=== PATIENT | female | born 1980 | race Caucasian/White ===

== ENCOUNTER → 2017-09-01 16:32 | Outpatient (CLI) | payer MEDICAID, SELFPAY ==
--- NOTE | 2017-09-01 16:35 | MM_ITS ---
MM Dig screening mamm BI w/CAD CAD Screening COMPARISON: Digital mammograms 05/29/2015 and 08/27/2016 INDICATION: There is a history of breast cancer patient maternal aunt diagnosed before menopause. There has been previous biopsy right breast. TECHNIQUE: Standard CC and MLO images were obtained. R2 CAD reviewed. FINDINGS: Prominent diffuse fibroglandular densities are seen in the central portions of both breasts and the findings are bilateral and symmetrical. There is a mole marker left breast. There are tiny stable benign-appearing nodular densities in each breast as noted previously. There is no suspicious lesion and there are no suspicious microcalcifications. There are stable normal-sized nodes in both axilla IMPRESSION: Stable exam with no suspicious lesion seen BI-RADS Category: 2 Benign Finding(s) RECOMMENDED FOLLOW-UP: 1YR - 1 YEAR FOLLOW-UP (A letter has been sent to the patient regarding results of the study.)
== END ==
PROVIDERS: Family Provider Nurse Practitioner Family; PCP Internal Medicine Adolescent Medicine; Visit Provider Nurse Practitioner Obstetrics & Gynecology
DX: Z12.31 Encounter for screening mammogram for malignant neoplasm of breast (principal)
CPT/HCPCS: 77067

== ENCOUNTER → 2017-10-26 16:18 | Outpatient (CLI) | payer MEDICAID, SELFPAY ==
[2017-10-26 16:41] LABS: Basophils # 0.1 K/mm3 (0-0.2); Basophils % 0.6 % (0.1-2.0); Eosinophils # 0.3 K/mm3 (0.0-0.4); Eosinophils % 3.6 % (0.1-12.0); Hematocrit 40.5 % (37.0-47.0); Hemoglobin 13.2 g/dL (12.2-16.2); Lymphocytes # 2.8 K/mm3 (0.7-4.5); Lymphocytes % 32.4 K/mm3 (10-50); Mean Corpuscular HGB Conc 32.7 g/dL (31.8-35.4); Mean Corpuscular Hemoglobin 29.9 pg (27.0-31.2); Mean Corpuscular Volume 91.4 fl (81-99); Mean Platelet Volume 7.4 fl (7.4-10.4); Monocytes # 0.5 K/mm3 (0.1-1.0); Monocytes % 5.4 % (1.7-9.3); Platelet Count 402 K/mm3 (142-424); Red Blood Count 4.43 M/mm3 (4.20-5.40); Red Cell Distribution Width 12.1 % (11.5-17.5); White Blood Count 8.7 K/mm3 (4.8-10.8)
[2017-10-26 17:17] LABS: Alanine Aminotransferase 27 U/L (12-78); Albumin/Globulin Ratio 1.1 (1.1-1.8); Alkaline Phosphatase 71 U/L (46-116); Anion Gap 13.3 mEq/L (5-15); Aspartate Amino Transferase 14 U/L (15-37); Bilirubin,Total 0.2 mg/dL (0.2-1.0); Blood Urea Nitrogen 15 mg/dL (7-18); Calcium 9.4 mg/dL (8.5-10.1); Carbon Dioxide 28 mmol/L (21.0-32.0); Chloride 103 mmol/L (98-107); Creatinine,Serum 0.76 mg/dL (0.55-1.02); Estimated Glomerular Filt Rate 86 ml/min (>60); Free Thyroxine Index 3.4 ug/dL (5.93-13.13); GFR (African American) 104 ML/MIN (>60); Globulin 3.7 gm/dl (1.3-3.2); Glucose 89 mg/dL (74-106); Potassium 4.3 mmoL/L (3.5-5.1); Sodium 140 mmol/L (136-145); T4 (Thyroxine) 10.7 ug/dl (4.7-13.3); Thyroid Stimulating Hormone 1.35 uIU/ml (0.358-3.740); Total Protein,Serum 7.7 gm/dL (6.4-8.2); Triiodothryronine (T3) Uptake 32 % (31-39)
[2017-10-29 12:51] LABS: Estradiol 34.5 pg/mL (.); FSH 4.5 mIU/mL (.); LH 3.7 mIU/mL (.)
[2017-10-30 20:11] LABS: Testosterone,Free 3.2 pg/mL (0.0-4.2)
== END ==
PROVIDERS: Visit Provider Nurse Practitioner Obstetrics & Gynecology
DX: R53.82 Chronic fatigue, unspecified (principal); N95.1 Menopausal and female climacteric states
CPT/HCPCS: 36415; 80053; 82670; 83001; 83002; 84402; 84436; 84443; 84479; 85025

== ENCOUNTER → 2017-12-08 13:25 | Outpatient (CLI) | payer MEDICAID, SELFPAY ==
[2017-12-08 14:19] LABS: Basophils # 0.1 K/mm3 (0-0.2); Basophils % 0.8 % (0.1-2.0); Eosinophils # 0.2 K/mm3 (0.0-0.4); Eosinophils % 2.5 % (0.1-12.0); Hematocrit 42.4 % (37.0-47.0); Hemoglobin 13.4 g/dL (12.2-16.2); Lymphocytes # 2.8 K/mm3 (0.7-4.5); Lymphocytes % 33.3 K/mm3 (10-50); Mean Corpuscular HGB Conc 31.6 g/dL (31.8-35.4); Mean Corpuscular Hemoglobin 29.1 pg (27.0-31.2); Mean Corpuscular Volume 91.9 fl (81-99); Mean Platelet Volume 7.3 fl (7.4-10.4); Monocytes # 0.3 K/mm3 (0.1-1.0); Monocytes % 3.9 % (1.7-9.3); Neutrophils # 4.9 K/mm3 (1.8-7.8); Neutrophils % 59.6 % (37.0-80.0); Platelet Count 432 K/mm3 (142-424); Red Blood Count 4.61 M/mm3 (4.20-5.40); White Blood Count 8.3 K/mm3 (4.8-10.8)
[2017-12-08 15:02] LABS: Alanine Aminotransferase 24 U/L (12-78); Albumin Level 3.7 gm/dL (3.4-5.0); Albumin/Globulin Ratio 0.9 (1.1-1.8); Alkaline Phosphatase 64 U/L (46-116); Anion Gap 11.1 mEq/L (5-15); Aspartate Amino Transferase 7 U/L (15-37); Bilirubin,Total 0.2 mg/dL (0.2-1.0); Blood Urea Nitrogen 11 mg/dL (7-18); Calcium 9.6 mg/dL (8.5-10.1); Carbon Dioxide 29 mmol/L (21.0-32.0); Chloride 103 mmol/L (98-107); Creatinine,Serum 0.85 mg/dL (0.55-1.02); Estimated Glomerular Filt Rate 75 ml/min (>60); Free Thyroxine Index 4.4 ug/dL (5.93-13.13); GFR (African American) 91 ML/MIN (>60); Globulin 3.9 gm/dl (1.3-3.2); Glucose 102 mg/dL (74-106); Potassium 4.1 mmoL/L (3.5-5.1); Sodium 139 mmol/L (136-145); T4 (Thyroxine) 15.2 ug/dl (4.7-13.3); Thyroid Stimulating Hormone 0.97 uIU/ml (0.358-3.740); Total Protein,Serum 7.6 gm/dL (6.4-8.2); Triiodothryronine (T3) Uptake 29 % (31-39)
[2017-12-10 09:16] LABS: Testosterone,Total 48 ng/dL (8-48)
[2017-12-10 10:27] LABS: LH 8.4 mIU/mL (.)
== END ==
PROVIDERS: Visit Provider Nurse Practitioner Obstetrics & Gynecology
DX: E03.9 Hypothyroidism, unspecified (principal); N92.6 Irregular menstruation, unspecified
CPT/HCPCS: 36415; 80053; 82670; 83001; 83002; 84403; 84436; 84443; 84479; 85025

== ENCOUNTER → 2018-01-20 12:20 | Outpatient (CLI) | payer MEDICAID, SELFPAY ==
--- NOTE | 2018-01-20 12:22 | US_ITS ---
US transvaginal Ordering Physician: Josh Lane MD Patient Age: 37 years: Female HISTORY: ITS.REASON: US T/V- Abnormal Bleeding abnormal bleeding. Heavy cycles TECHNIQUE: Transvaginal pelvic ultrasound COMPARISON :Previous CT abdomen pelvis 2007 FINDINGS Uterus appears normal in size. 8.6 cm length . endometrial stripe does not appear to be thickened. 3.6 mm AP Uterus contains multiple fibroids. At least 3 fibroids are specifically identified: Fibroid A: measures 1.5 x 1.1cm anterior myometrium body of uterus Fibroid B: posterior body of uterus measures 2 cm x 1.8X 1.4 cm. It resides just posterior to the endometrial stripe and may be Submucosal Fibroid C:. 1.2 x 1 cm likely central, likely submucosal as well just anterior to the endometrium and to the left. - Ovaries appear normal in size with the left slightly larger than right. Good flow to both ovaries No fluid in cul-de-sac Left ovary : measures maximum of 2.8 cm x 1.6 cm x 1.9 cm on the images. Small 8 mm cyst centrally at left ovary . Right ovary : measures 2 cm x 1.1 cm x 1.2 cm lIMPRESSION: ----- 1. Fibroid uterus. 3 fibroids identified in the uterus. The largest measuring up to nearly 2 cm just posterior to t the endometrial stripe at body of uterus & appears likely submucosal. The smaller third fibroid measuring 1.2 cm is likely submucosal at the anterior left aspect of the endometria 2. Ovaries appear normal Bilaterally. Small 8 mm left ovarian cyst 3. No fluid in cul-de-sac
[2018-01-20 17:18] LABS: Free Thyroxine Index 3.3 ug/dL (5.93-13.13); T4 (Thyroxine) 12.6 ug/dl (4.7-13.3); Thyroid Stimulating Hormone 1.56 uIU/ml (0.358-3.740); Triiodothryronine (T3) Uptake 26 % (31-39)
== END ==
PROVIDERS: Family Provider Nurse Practitioner Family; PCP Internal Medicine Adolescent Medicine; Visit Provider Nurse Practitioner Obstetrics & Gynecology
DX: N92.6 Irregular menstruation, unspecified (principal); R53.82 Chronic fatigue, unspecified
CPT/HCPCS: 36415; 76830; 84436; 84443; 84479

== ENCOUNTER → 2018-07-27 16:28 | Outpatient (CLI) | payer BC, SELFPAY ==
[2018-07-27 18:17] LABS: Free Thyroxine Index 3.1 ug/dL (5.93-13.13); T4 (Thyroxine) 9.4 ug/dl (4.7-13.3); Thyroid Stimulating Hormone 1.24 uIU/ml (0.358-3.740); Triiodothryronine (T3) Uptake 33 % (31-39)
[2018-07-29 06:17] LABS: Triiodothyronine (T3) Free 3.1 pg/mL (2.0-4.4)
== END ==
PROVIDERS: Visit Provider Nurse Practitioner Obstetrics & Gynecology
DX: E03.9 Hypothyroidism, unspecified (principal); R53.82 Chronic fatigue, unspecified
CPT/HCPCS: 36415; 84436; 84443; 84479; 84481

== ENCOUNTER → 2018-10-07 12:11 | Outpatient (CLI) | payer BC, SELFPAY ==
[2018-10-07 13:41] LABS: Free Thyroxine Index 3.9 ug/dL (5.93-13.13); T4 (Thyroxine) 13.5 ug/dl (4.7-13.3); Thyroid Stimulating Hormone 1.04 uIU/ml (0.358-3.740); Triiodothryronine (T3) Uptake 29 % (31-39)
[2018-10-08 18:10] LABS: Estradiol 72.9 pg/mL (.); FSH 7.9 mIU/mL (.); LH 7.5 mIU/mL (.)
== END ==
PROVIDERS: Visit Provider Nurse Practitioner Obstetrics & Gynecology
DX: N95.1 Menopausal and female climacteric states (principal)
CPT/HCPCS: 36415; 82670; 83001; 83002; 84436; 84443; 84479

== ENCOUNTER → 2019-03-29 10:21 | Outpatient (CLI) | payer BC, SELFPAY ==
[2019-03-29 10:29] LABS: Adenovirus,PCR Not Detected (NotDetected); Bordetella Pertussis Not Detected (NotDetected); Chlamydophila Pneumoniae, PCR Not Detected (NotDetected); Coronavirus 229E Not Detected (NotDetected); Coronavirus NL63 Not Detected (NotDetected); Coronavirus OC43 Not Detected (NotDetected); Coronovirus HKU1,PCR Not Detected (NotDetected); Human Metapneumovirus Not Detected (NotDetected); Influenza A, PCR Not Detected (NotDetected); Influenza AH1, 2009 Not Detected (NotDetected); Influenza AH1, PCR Not Detected (NotDetected); Influenza AH3,PCR Not Detected (NotDetected); Influenza B, PCR Not Detected (NotDetected); Mycoplasma Pneumoniae, PCR Not Detected (NotDetected); Parainfluenza 1, PCR Not Detected (NotDetected); Parainfluenza 2, PCR Not Detected (NotDetected); Parainfluenza 3, PCR Not Detected (NotDetected); Parainfluenza 4, PCR Not Detected (NotDetected); Respiratory Syncytial Virus Not Detected (NotDetected); Rhinovirus/Enterovirus Not Detected (NotDetected)
[2019-03-29 11:23] LABS: Basophils # 0.1 K/mm3 (0-0.2); Eosinophils # 0.2 K/mm3 (0.0-0.4); Eosinophils % 2.1 % (0.1-12.0); Hematocrit 43.9 % (37.0-47.0); Hemoglobin 13.3 g/dL (12.2-16.2); Lymphocytes % 23.8 % (10-50); Mean Corpuscular HGB Conc 30.4 g/dL (31.8-35.4); Mean Corpuscular Hemoglobin 28.8 pg (27.0-31.2); Mean Corpuscular Volume 94.9 fl (81-99); Mean Platelet Volume 7.5 fl (7.4-10.4); Monocytes # 0.5 K/mm3 (0.1-1.0); Monocytes % 6.1 % (1.7-9.3); Neutrophils # 5.7 K/mm3 (1.8-7.8); Platelet Count 442 K/mm3 (142-424); Red Blood Count 4.63 M/mm3 (4.20-5.40); Red Cell Distribution Width 12.8 % (11.5-17.5); White Blood Count 8.5 K/mm3 (4.8-10.8)
[2019-03-29 13:06] LABS: Alanine Aminotransferase 42 U/L (12-78); Albumin Level 3.9 gm/dL (3.4-5.0); Alkaline Phosphatase 85 U/L (46-116); Anion Gap 15.8 mEq/L (5-15); Aspartate Amino Transferase 26 U/L (15-37); Bilirubin,Total 0.2 mg/dL (0.2-1.0); Blood Urea Nitrogen 9 mg/dL (7-18); Calcium 9.7 mg/dL (8.5-10.1); Carbon Dioxide 26 mmol/L (21.0-32.0); Chloride 100 mmol/L (98-107); Creatinine,Serum 0.68 mg/dL (0.55-1.02); Estimated Glomerular Filt Rate 97 ml/min (>60); GFR (African American) 117 ML/MIN (>60); Globulin 3.9 gm/dl (1.3-3.2); Glucose 87 mg/dL (74-106); Potassium 4.8 mmoL/L (3.5-5.1); Sodium 137 mmol/L (136-145); Total Protein,Serum 7.8 gm/dL (6.4-8.2)
[2019-03-29 15:25] LABS: Monoscreen (Rapid) Negative (Negative)
[2019-04-01 13:44] LABS: EBV Ab VCA, IgM <36.0 U/mL (0.0-35.9)
== END ==
PROVIDERS: Visit Provider Internal Medicine Adolescent Medicine
DX: J02.9 Acute pharyngitis, unspecified (principal); R50.9 Fever, unspecified
CPT/HCPCS: 36415; 80053; 85025; 86318; 86665; 87070; 87077; 87186; 87486; 87581; 87633; 87798

== ENCOUNTER → 2019-05-24 15:41 | Outpatient (CLI) | payer BC, SELFPAY ==
--- NOTE | 2019-05-24 15:44 | MM_ITS ---
PROCEDURE: MM DIG SCREENING MAMM BI W/CAD CLINICAL INDICATION: Routine Screening Mammogram There is a history of breast cancer in the patient's maternal aunt diagnosed before menopause. COMPARISON: DMDB DIG MAMM-DX DEBORAH from 05/29/2015 [facility] DIG MAMM-SCREEN DEBORAH W/CAD from 08/27/2016 [facility] MM Dig screening mamm BI w/CAD from 09/01/2017 TECHNIQUE: Standard CC and MLO images were obtained. R2 CAD reviewed. FINDINGS: Diffuse somewhat heterogenic fibroglandular densities are seen throughout both breasts. There is a stable small benign-appearing nodular density upper-outer quadrant left breast. There is a benign-appearing calcification left breast. There are small nodes in both axilla. There is no suspicious lesion and no suspicious microcalcifications. IMPRESSION: Moderate breast heterogenic density with no suspicious lesions seen BI-RAD Category: 2 Benign Finding(s) FOLLOW-UP: 1YR 1 Year Follow-up (A letter has been sent to the patient regarding results of the study.) Dictated by: Dr. Albert Wilks MD 05/25/2019 16:[address] Albert Wilks MD in [place] 05/25/2019 16:15
== END ==
PROVIDERS: PCP Internal Medicine Adolescent Medicine; Visit Provider Nurse Practitioner Obstetrics & Gynecology
DX: Z12.31 Encounter for screening mammogram for malignant neoplasm of breast (principal)
CPT/HCPCS: 77067

== ENCOUNTER → 2020-06-05 10:30 | Outpatient (CLI) | payer BC, SELFPAY ==
--- NOTE | 2020-06-05 10:31 | MM_ITS ---
PROCEDURE: MM DIG SCREENING MAMM BI W/CAD Referring Doctor: Josh Lane Patient Age:39Y CLINICAL INDICATION: screening xmg previous surgical excisional biopsy right breast benign. No hormones no new complaints. Family history: Maternal aunt with breast cancer in her 40s premenopausal COMPARISON: MG DMDB DIG MAMM-DX DEBORAH from 10/22/2014 MG DMDB DIG MAMM-DX DEBORAH from 05/29/2015 MG [facility]MSB DIG MAMM-SCREEN DEBORAH W/CAD from 08/27/2016 MG [facility] MM Dig screening mamm BI w/CAD from 09/01/2017 MG MM DIG SCREENING MAMM BI W/CAD from 05/24/2019 TECHNIQUE: Standard CC and MLO images were obtained. R2 CAD reviewed. Bilateral digital breast tomosynthesis included. Additional axillary CC views both breast FINDINGS: Moderate dense heterogeneous breast.. Mammography slightly limited in breast of this character period there has been slight progressive fatty replacement Since 2015 . no suspicious calcifications in either breast. Stable generous axillary lymph nodes. Left breast. No significant new findings left breast follow-up in 1 year latter adequate on left Areas of mild asymmetry appears similar to multiple previous studies Dating back to 2017, Right breast no new areas of significant concern reviewing all images Area of density right inferior breast at the retroareolar region seen on MLO view dissipates on the subsequent tomosynthesis views and thus I favor is merely overlapping tissue the. However given its focal asymmetric appearance on MLO view I would suggest a follow-up right mammogram in 6 months to confirm stability IMPRESSION: . RIGHT BREAST: Suggest follow-up right mammogram 6 months Areas of asymmetry density at the inferior right breast on MLO and deep breast on CC view appear to dissipate on tomosynthesis view of-supporting that this is merely overlapping tissue.... However would suggest a follow-up right mammogram in 6 months to confirm stability given appearance on the initial MLO view. LEFT BREAST- No new areas of concern follow-up 1 year on left BI-RAD Category: 3 Probably Benign Finding Short Term Follow-up FOLLOW-UP: 6M 6 Month Follow-up right breast (A letter has been sent to the patient regarding results of the study.) The Dictated by: Fernando Zazueta MD 06/10/2020 09:58 Fernando Zazueta MD in [place] 06/10/2020 09:58
== END ==
PROVIDERS: PCP Internal Medicine Adolescent Medicine; Visit Provider Nurse Practitioner Obstetrics & Gynecology
DX: Z12.31 Encounter for screening mammogram for malignant neoplasm of breast (principal)
CPT/HCPCS: 77063; 77067

== ENCOUNTER → 2020-07-06 07:56 | Outpatient (CLI) | payer BC, SELFPAY ==
[2020-07-06 08:16] LABS: Basophils # 0.1 K/mm3 (0-0.2); Basophils % 1.1 % (0.1-2.0); Eosinophils # 0.3 K/mm3 (0.0-0.4); Eosinophils % 3.9 % (0.1-12.0); Hematocrit 44.9 % (37.0-47.0); Hemoglobin 14.5 g/dL (12.2-16.2); Lymphocytes # 2.8 K/mm3 (0.7-4.5); Lymphocytes % 37.5 % (10-50); Mean Corpuscular HGB Conc 32.4 g/dL (31.8-35.4); Mean Corpuscular Hemoglobin 30.3 pg (27.0-31.2); Mean Corpuscular Volume 93.6 fl (81-99); Mean Platelet Volume 7.6 fl (7.4-10.4); Monocytes # 0.4 K/mm3 (0.1-1.0); Monocytes % 4.7 % (1.7-9.3); Neutrophils % 52.7 % (37.0-80.0); Platelet Count 419 K/mm3 (142-424); Red Cell Distribution Width 12.6 % (11.5-17.5); White Blood Count 7.6 K/mm3 (4.8-10.8)
[2020-07-06 08:44] LABS: Alanine Aminotransferase 29 U/L (12-78); Albumin Level 4.6 g/dl (3.5-5.0); Albumin/Globulin Ratio 1.4 (1.1-1.8); Alkaline Phosphatase 79 U/L (38-126); Anion Gap 12.7 mEq/L (5-15); Aspartate Amino Transferase 24 U/L (14-36); Bilirubin,Total 0.6 mg/dl (0.2-1.3); Blood Urea Nitrogen 14 mg/dl (7-17); Calcium 10.3 mg/dl (8.4-10.2); Carbon Dioxide 29 mmol/L (22.0-30.0); Chloride 103 mmol/L (98-107); Chol/HDL Ratio 3.5 (1-3.5); Cholesterol 227 mg/dl (140-200); Estimated Glomerular Filt Rate 80 ml/min (>60); GFR (African American) 97 ML/MIN (>60); Globulin 3.4 g/dL (1.3-3.2); Glucose 111 mg/dl (74-100); HDL Cholesterol 65 mg/dl (40-60); Potassium 4.7 mmoL/L (3.5-5.1); Sodium 140 mmol/L (136-145); Triglycerides 117 mg/dl (30-150); VLDL Cholesterol 23 mg/dL (0-40)
[2020-07-06 08:56] LABS: Direct LDL Cholesterol 122.76 mg/dL (100-129)
[2020-07-06 09:01] LABS: Free Thyroxine Index 2.6 ug/dL (5.93-13.13); T4 (Thyroxine) 9.1 ug/dl (5.53-11.0); Triiodothryronine (T3) Uptake 29 % (23.5-40.5)
[2020-07-06 09:15] LABS: Thyroid Stimulating Hormone 1.12 uIU/mL (0.465-4.68)
== END ==
PROVIDERS: Visit Provider Nurse Practitioner Obstetrics & Gynecology
DX: Z01.419 Encounter for gynecological examination (general) (routine) without abnormal findings (principal); E06.3 Autoimmune thyroiditis; R53.82 Chronic fatigue, unspecified
CPT/HCPCS: 36415; 80053; 80061; 84436; 84443; 84479; 85025

== ENCOUNTER → 2020-10-05 10:46 | Outpatient (CLI) | payer BC, SELFPAY ==
--- NOTE | 2020-10-05 | XR_ITS ---
PROCEDURE: XR LUMBAR SPINE MIN 4V CLINICAL INDICATION: right sided back pain COMPARISON: No exams were available for comparison FINDINGS: There is accentuated lordotic curvature lower lumbar spine. The lumbosacral angle is increased suggesting possible instability of the lower back. All lumbar vertebrae appear intact and disc spaces are well maintained throughout. There is no pars defect. There is a spina bifida occulta of S1. The SI joints are normal. Tubal ligation clips are seen. IMPRESSION: No accentuated lumbar lordosis with increased lumbosacral angle findings which could predispose to low back pain and or instability. Dictated by: Dr. Albert Wilks MD 10/05/2020 16:13 Dr. Albert Wilks MD in [place] 10/05/2020 16:13
== END ==
PROVIDERS: PCP Internal Medicine Adolescent Medicine; Visit Provider Internal Medicine Adolescent Medicine
DX: M54.41 Lumbago with sciatica, right side (principal)
CPT/HCPCS: 72110

== ENCOUNTER → 2020-11-21 13:15 | Outpatient (CLI) | payer BC, SELFPAY ==
--- NOTE | 2020-11-21 13:15 | MM_ITS ---
PROCEDURE: MM DIG MAMM BI DX W/CAD Digital Breast Tomosynthesis Included CLINICAL INDICATION: 6 month follow up on right breast, screening, lt COMPARISON: MG [facility] MM Dig screening mamm BI w/CAD from 09/01/2017 MG MM DIG SCREENING MAMM BI W/CAD from 05/24/2019 MG MM DIG SCREENING MAMM BI W/CAD from 06/05/2020 TECHNIQUE: Standard CC and MLO images and 3D Tomosynthesis was obtained. R2 CAD reviewed. FINDINGS: Average to dense fibroglandular tissue. No malignant appearing mass or malignant-appearing microcalcification evident. Benign-appearing nodular density noted in the upper outer aspect of the left breast unchanged. Previously described asymmetry in the central aspect of the right breast appears to compress out as fibroglandular tissue. Asymmetry in the inferior periareolar region on the right does not appear significantly changed. Tomographic images suggest this may be due to some dilated ducts. IMPRESSION: Benign findings. Recommend resume bilateral screening mammogram June 2021 BI-RAD Category: 2 Benign Finding FOLLOW-UP: 6M 6 Month Follow-up (A letter has been sent to the patient regarding results of the study.) Dictated by: Renny Noland MD 11/22/2020 10:11 Renny Noland MD in [place] 11/22/2020 10:11
== END ==
PROVIDERS: PCP Internal Medicine Adolescent Medicine; Visit Provider Nurse Practitioner Obstetrics & Gynecology
DX: R92.8 Other abnormal and inconclusive findings on diagnostic imaging of breast (principal)
CPT/HCPCS: 77062; 77066; G0279

== ENCOUNTER → 2021-04-02 15:35 | Outpatient (CLI) | payer BC, SELFPAY ==
[2021-04-02 16:50] LABS: Free Thyroxine Index 1.9 ug/dL (5.93-13.13); T4 (Thyroxine) 7.1 ug/dl (5.53-11.0); Triiodothryronine (T3) Uptake 27 % (23.5-40.5)
[2021-04-02 17:04] LABS: Thyroid Stimulating Hormone 1.45 uIU/mL (0.465-4.68)
[2021-04-04 08:51] LABS: Triiodothyronine (T3) Free 3.1 pg/mL (2.0-4.4)
== END ==
PROVIDERS: Visit Provider Nurse Practitioner Obstetrics & Gynecology
DX: E03.9 Hypothyroidism, unspecified (principal); R53.82 Chronic fatigue, unspecified; R53.83 Other fatigue
CPT/HCPCS: 84436; 84443; 84479; 84481

== ENCOUNTER → 2021-04-07 07:16 | Outpatient (CLI) | payer BC, SELFPAY ==
[2021-04-07 07:36] LABS: Basophils # 0.2 K/mm3 (0-0.2); Basophils % 1.9 % (0.1-2.0); Eosinophils # 0.3 K/mm3 (0.0-0.4); Eosinophils % 2.9 % (0.1-12.0); Hematocrit 44.3 % (37.0-47.0); Hemoglobin 14.5 g/dL (12.2-16.2); Lymphocytes # 2.6 K/mm3 (0.7-4.5); Mean Corpuscular HGB Conc 32.7 g/dL (31.8-35.4); Mean Corpuscular Volume 94.7 fl (81-99); Monocytes # 0.4 K/mm3 (0.1-1.0); Monocytes % 4.1 % (1.7-9.3); Neutrophils # 5.2 K/mm3 (1.8-7.8); Platelet Count 415 K/mm3 (142-424); Red Blood Count 4.68 M/mm3 (4.20-5.40); Red Cell Distribution Width 12.4 % (11.5-17.5); White Blood Count 8.6 K/mm3 (4.8-10.8)
[2021-04-07 08:36] LABS: 25-OH Vitamin D, Total 22.9 ng/mL (30-100)
[2021-04-07 09:24] LABS: Alanine Aminotransferase 20 U/L (12-78); Albumin Level 4.2 g/dl (3.5-5.0); Albumin/Globulin Ratio 1.3 (1.1-1.8); Alkaline Phosphatase 69 U/L (38-126); Anion Gap 11.6 mEq/L (5-15); Aspartate Amino Transferase 19 U/L (14-36); Bilirubin,Total 0.3 mg/dl (0.2-1.3); Blood Urea Nitrogen 13 mg/dl (7-17); Calcium 9.4 mg/dl (8.4-10.2); Carbon Dioxide 26 mmol/L (22.0-30.0); Chloride 109 mmol/L (98-107); Chol/HDL Ratio 4.4 (1-3.5); Cholesterol 210 mg/dl (140-200); Estimated Glomerular Filt Rate 111 ml/min (>60); GFR (African American) 134 ML/MIN (>60); Globulin 3.2 g/dL (1.3-3.2); Glucose 112 mg/dl (74-100); HDL Cholesterol 48 mg/dl (40-60); Potassium 4.6 mmoL/L (3.5-5.1); Sodium 142 mmol/L (136-145); Total Protein,Serum 7.4 g/dl (6.3-8.2); Triglycerides 87 mg/dl (30-150); VLDL Cholesterol 17 mg/dL (0-40)
[2021-04-07 09:36] LABS: Direct LDL Cholesterol 117.53 mg/dL (100-129)
[2021-04-07 11:16] LABS: Vitamin B12 265 pg/mL (239-931)
== END ==
PROVIDERS: Internal Medicine Adolescent Medicine; Visit Provider Nurse Practitioner Family
DX: Z00.00 Encounter for general adult medical examination without abnormal findings (principal); R59.1 Generalized enlarged lymph nodes; R53.83 Other fatigue; R73.9 Hyperglycemia, unspecified; E55.9 Vitamin D deficiency, unspecified
CPT/HCPCS: 36415; 80053; 80061; 82306; 82607; 83036; 85025

== ENCOUNTER → 2021-10-18 08:50 | Outpatient (CLI) | payer BC, SELFPAY ==
[2021-10-18 11:02] LABS: Alanine Aminotransferase 32 U/L (12-78); Albumin Level 4.4 g/dl (3.5-5.0); Albumin/Globulin Ratio 1.5 (1.1-1.8); Alkaline Phosphatase 69 U/L (38-126); Anion Gap 10.7 mEq/L (5-15); Aspartate Amino Transferase 25 U/L (14-36); Bilirubin,Total 0.6 mg/dl (0.2-1.3); Blood Urea Nitrogen 12 mg/dl (7-17); Calcium 9.4 mg/dl (8.4-10.2); Carbon Dioxide 26 mmol/L (22.0-30.0); Chloride 108 mmol/L (98-107); Chol/HDL Ratio 4.4 (1-3.5); Cholesterol 210 mg/dl (140-200); Estimated Glomerular Filt Rate 110 ml/min (>60); GFR (African American) 133 ML/MIN (>60); Glucose 90 mg/dl (74-100); HDL Cholesterol 48 mg/dl (40-60); Potassium 4.7 mmoL/L (3.5-5.1); Sodium 140 mmol/L (136-145); Total Protein,Serum 7.4 g/dl (6.3-8.2); Triglycerides 119 mg/dl (30-150); VLDL Cholesterol 24 mg/dL (0-40)
[2021-10-18 11:13] LABS: Direct LDL Cholesterol 106.72 mg/dL (100-129)
[2021-10-18 11:51] LABS: Vitamin B12 754 pg/mL (239-931)
[2021-10-18 12:05] LABS: 25-OH Vitamin D, Total 22.3 ng/mL (30-100)
[2021-10-18 12:40] LABS: Hemoglobin A1C 5.6 % (4.0-6.0)
== END ==
PROVIDERS: Nurse Practitioner Family; PCP Internal Medicine Adolescent Medicine; Visit Provider Internal Medicine Adolescent Medicine
DX: R73.9 Hyperglycemia, unspecified (principal); E78.5 Hyperlipidemia, unspecified; E53.8 Deficiency of other specified B group vitamins; E55.9 Vitamin D deficiency, unspecified
CPT/HCPCS: 36415; 80053; 80061; 82306; 82607; 83036

== ENCOUNTER → 2021-12-08 15:37 | Outpatient (CLI) | payer BC, SELFPAY ==
--- NOTE | 2021-12-08 15:38 | MM_ITS ---
PROCEDURE INFORMATION: Exam: MG Bilateral Screening 3D Mammography Exam date and time: 12/08/2021 3:49 PM Age: 41 years old Clinical indication: Screening examination TECHNIQUE: Imaging protocol: Bilateral Screening tomosynthesis and 2D mammography including computer-aided detection (CAD) when performed. COMPARISON: 1. MG MM DIG MAMM BI DX W/CAD 11/21/2020 1:36 PM 2. MG MM DIG SCREENING MAMM BI W/CAD 06/05/2020 10:39 AM FINDINGS: MAMMOGRAPHY: Breast composition: The breasts are heterogeneously dense, which may obscure small masses. Mass: None. Architectural distortion: None. Calcifications: No suspicious calcifications. Asymmetric density: None. Skin thickening: None. Axillary adenopathy: None. IMPRESSION: No mammographic evidence of malignancy. Annual screening is recommended unless otherwise clinically indicated. ASSESSMENT: BI-RADS Category 1: Negative
== END ==
PROVIDERS: PCP Internal Medicine Adolescent Medicine; Visit Provider Nurse Practitioner Obstetrics & Gynecology
DX: Z12.31 Encounter for screening mammogram for malignant neoplasm of breast (principal)
CPT/HCPCS: 77063; 77067

== ENCOUNTER → 2022-12-07 08:08 | Outpatient (CLI) | payer BC, SELFPAY ==
[2022-12-07 08:41] LABS: Basophils # 0.1 K/mm3 (0-0.2); Basophils % 0.9 % (0.1-2.0); Eosinophils # 0.2 K/mm3 (0.0-0.4); Eosinophils % 2.9 % (0.1-12.0); Hematocrit 45.3 % (37.0-47.0); Hemoglobin 14.1 g/dL (12.2-16.2); Lymphocytes # 2.5 K/mm3 (0.7-4.5); Lymphocytes % 37.1 % (10-50); Mean Corpuscular HGB Conc 31.1 g/dL (31.8-35.4); Mean Corpuscular Hemoglobin 29.6 pg (27.0-31.2); Mean Corpuscular Volume 95.2 fl (81-99); Mean Platelet Volume 7.8 fl (7.4-10.4); Monocytes # 0.4 K/mm3 (0.1-1.0); Monocytes % 5.3 % (1.7-9.3); Neutrophils # 3.6 K/mm3 (1.8-7.8); Neutrophils % 53.7 % (37.0-80.0); Platelet Count 390 K/mm3 (142-424); Red Blood Count 4.76 M/mm3 (4.20-5.40); Red Cell Distribution Width 12.9 % (11.5-17.5); White Blood Count 6.7 K/mm3 (4.8-10.8)
[2022-12-07 09:12] LABS: Hemoglobin A1C 5.6 % (4.0-6.0)
[2022-12-07 10:04] LABS: Cholesterol 206 mg/dl (140-200)
[2022-12-07 10:22] LABS: 25-OH Vitamin D, Total 32.1 ng/mL (30-100); Free Thyroxine Index 2.5 ug/dL (5.93-13.13); Triiodothryronine (T3) Uptake 31 % (23.5-40.5)
[2022-12-07 10:36] LABS: Thyroid Stimulating Hormone 1.89 uIU/mL (0.465-4.68)
[2022-12-07 10:55] LABS: Vitamin B12 557 pg/mL (239-931)
== END ==
PROVIDERS: PCP Internal Medicine Adolescent Medicine; Visit Provider Nurse Practitioner Obstetrics & Gynecology
DX: Z01.419 Encounter for gynecological examination (general) (routine) without abnormal findings (principal)
CPT/HCPCS: 36415; 82306; 82465; 82607; 83036; 84436; 84443; 84479; 85025

== ENCOUNTER → 2022-12-11 10:04 | Outpatient (CLI) | payer BC, SELFPAY ==
--- NOTE | 2022-12-11 10:05 | MM_ITS ---
PROCEDURE INFORMATION: Exam: MG Bilateral Screening 3D Mammography Exam date and time: 12/11/2022 9:53 AM Age: 42 years old Clinical indication: Screening mammogram TECHNIQUE: Imaging protocol: Bilateral Screening tomosynthesis and 2D mammography including computer-aided detection (CAD) when performed. COMPARISON: 1. MG MM DIG SCREENING MAMM BI W/CAD 12/08/2021 3:49 PM 2. MG MM DIG MAMM BI DX W/CAD 11/21/2020 1:36 PM 3. MG MM DIG SCREENING MAMM BI W/CAD 06/05/2020 10:39 AM 4. MG MM DIG SCREENING MAMM BI W/CAD 05/24/2019 4:38 PM FINDINGS: MAMMOGRAPHY: Breast composition: The breast is heterogeneously dense, which may obscure small masses. Mass: None. Architectural distortion: No new or suspicious architectural distortion. Calcifications: No new or suspicious calcifications are present Asymmetric density: No new or suspicious asymmetric density is present Skin thickening: None. Axillary adenopathy: None. IMPRESSION: No mammographic evidence of malignancy. Recommend annual screening mammography unless otherwise clinically indicated. ASSESSMENT: BI-RADS category 1: Negative
== END ==
PROVIDERS: PCP Internal Medicine Adolescent Medicine; Visit Provider Nurse Practitioner Obstetrics & Gynecology
DX: Z12.31 Encounter for screening mammogram for malignant neoplasm of breast (principal)
CPT/HCPCS: 77063; 77067

== ENCOUNTER 2023-12-28 13:16 | Outpatient (CLI) | payer BC, SELFPAY ==
--- NOTE | 2023-12-28 13:17 | MM_ITS ---
PROCEDURE INFORMATION: Exam: MG Bilateral Screening 3D Mammography Exam date and time: 12/28/2023 1:11 PM Age: 43 years old Clinical indication: Screening. Her maternal aunt had breast cancer. TECHNIQUE: Imaging protocol: Bilateral Screening tomosynthesis and 2D mammography including computer-aided detection (CAD) when performed. COMPARISON: 1. MG MM DIG SCREENING MAMM BI W/CAD 12/11/2022 9:53 AM 2. MG MM DIG SCREENING MAMM BI W/CAD 12/08/2021 3:49 PM 3. MG MM DIG MAMM BI DX W/CAD 11/21/2020 1:36 PM 4. MG MM DIG SCREENING MAMM BI W/CAD 06/05/2020 10:39 AM FINDINGS: MAMMOGRAPHY: Breast composition: The breasts are heterogeneously dense, which may obscure small masses. Mass: No suspicious mass. Architectural distortion: None. Calcifications: No suspicious calcifications. Asymmetric density: None. Skin thickening: None. Axillary adenopathy: None. IMPRESSION: No mammographic evidence of malignancy. Annual screening is recommended unless otherwise clinically indicated. ASSESSMENT: BI-RADS Category 1: Negative
== END 2023-12-28 23:59 | disposition home or self-care (01) ==
LOC: RAD 13:17
PROVIDERS: PCP Internal Medicine Adolescent Medicine; Visit Provider Nurse Practitioner Obstetrics & Gynecology
DX: Z12.31 Encounter for screening mammogram for malignant neoplasm of breast (principal)
CPT/HCPCS: 77063; 77067

== ENCOUNTER 2024-01-11 08:28 | Outpatient (CLI) | payer BC, SELFPAY ==
--- NOTE | 2024-01-11 08:32 | US_ITS ---
FINAL REPORT CLINICAL HISTORY: ELEVATED LIVER ENZYMES COMPARISON: None FINDINGS: Sonographic images of the right upper quadrant were obtained. The pancreas is partially obscured. There is mild fatty infiltration of the liver. The gallbladder appears normal without evidence of gallstones.There is no evidence of biliary ductal dilatation.The common duct measures 4mm. Limited images of the right kidney are unremarkable. There is a probable small amount of free fluid. IMPRESSION: Fatty liver. Small amount of free fluid. Reviewed, Interpreted and Dictated by Herb Velázquez III, MD Transcribed by Alize Fischer Authenticated and [facility]
== END 2024-01-11 23:59 | disposition home or self-care (01) ==
LOC: RAD 08:28
PROVIDERS: PCP Nurse Practitioner Family; Visit Provider Nurse Practitioner Family
DX: R74.8 Abnormal levels of other serum enzymes (principal)
CPT/HCPCS: 76705

== ENCOUNTER 2024-03-29 11:04 | Outpatient (CLI) | payer BC, SELFPAY ==
--- NOTE | 2024-03-29 11:12 | XR_ITS ---
FINAL REPORT CLINICAL HISTORY: ACUTE BRONCHITIS FINDINGS: 2 views of the chest were obtained . The heart is normal in size. The mediastinum is within normal limits. The lungs are clear. There is no pneumothorax. Osseous structures are unremarkable. IMPRESSION: No acute cardiopulmonary process. Reviewed, Interpreted and Dictated by Osmin Ellsworth MD Transcribed by Alba Allen Authenticated and [facility]
== END 2024-03-29 23:59 | disposition home or self-care (01) ==
LOC: RAD 11:05
PROVIDERS: PCP Internal Medicine Adolescent Medicine; Visit Provider Physician Assistant
DX: J20.9 Acute bronchitis, unspecified (principal)
CPT/HCPCS: 71046

== ENCOUNTER 2024-04-20 11:05 | Outpatient (CLI) | payer BC, SELFPAY ==
--- NOTE | 2024-04-20 11:18 | XR_ITS ---
FINAL REPORT CLINICAL HISTORY: right tib/fib pain COMPARISON: None FINDINGS: RIGHT TIBIA FIBULA: There is no acute fracture or dislocation. The joint spaces are intact. There is no soft tissue abnormality. IMPRESSION: No acute bony abnormality identified. Reviewed, Interpreted and Dictated by Joaquín Hussein MD Transcribed by Aleshia Diaz Authenticated and [facility]
--- NOTE | 2024-04-20 11:18 | XR_ITS ---
FINAL REPORT CLINICAL HISTORY: ACUTE RIGHT KNEE PAIN COMPARISON: None FINDINGS: RIGHT KNEE 3 views of the right knee were obtained. There is no acute fracture or dislocation. Visualized joint spaces are normally aligned. Soft tissues are unremarkable. There are sclerotic foci in the distal femoral metaphysis, that may be developmental or may represent bone infarcts. IMPRESSION: No acute bony abnormality. Reviewed, Interpreted and Dictated by Joaquín Hussein MD Transcribed by Aleshia Diaz Authenticated and [facility]
--- NOTE | 2024-04-20 11:19 | XR_ITS ---
FINAL REPORT CLINICAL HISTORY: RIGHT LEG PAIN COMPARISON: None FINDINGS: RIGHT FEMUR: 5 images of the right femur were obtained. There is no evidence of fracture or dislocation. There is sclerosis noted in the distal femoral metaphysis, that may be developmental or secondary to bone infarcts. The joint spaces are intact. There is no soft tissue abnormality identified. IMPRESSION: No acute bony abnormality. Reviewed, Interpreted and Dictated by Joaquín Hussein MD Transcribed by Aleshia Diaz Authenticated and [facility]
== END 2024-04-20 23:59 | disposition home or self-care (01) ==
LOC: RAD 11:05
PROVIDERS: PCP Nurse Practitioner Family; Visit Provider Nurse Practitioner Family
DX: M25.561 Pain in right knee (principal); M25.461 Effusion, right knee; M79.604 Pain in right leg
CPT/HCPCS: 73552; 73562; 73590

== ENCOUNTER 2024-09-06 16:19 | Observation (INO) | payer BC, SELFPAY ==
--- NOTE | 2024-09-06 16:33 | CT_ITS ---
PROCEDURE INFORMATION: Exam: CT Neck With Contrast Exam date and time: 09/06/2024 6:04 PM Age: 44 years old Clinical indication: Throat pain; Additional info: Pharyngitis - R/O abscess TECHNIQUE: Imaging protocol: Computed tomography of the neck with contrast. Radiation optimization: All CT scans at this facility use at least one of these dose optimization techniques: automated exposure control; mA and/or kV adjustment per patient size (includes targeted exams where dose is matched to clinical indication); or iterative reconstruction. Contrast material: ISOVUE; Contrast volume: 75 ml; Contrast route: IV; COMPARISON: CT SOFT TISSUE NECK W CON 11/04/2024 18:04 FINDINGS: Salivary glands: Normal. Glands are normal in size. Pharynx: Minimal oropharyngeal and hypopharyngeal mucosal thickening. The palatine and lingual tonsils are mildly enlarged. Larynx: Unremarkable. Epiglottis is normal. Thyroid: Normal. No enlarged or calcified nodules. Trachea: Visualized trachea is unremarkable. Lungs: Unremarkable as visualized. Lymph nodes: There are enlarged bilateral cervical lymph nodes that are most likely reactive. Bones/joints: Unremarkable. No acute fracture. Soft tissues: Unremarkable. No significant soft tissue swelling. Other findings: Stigmata of old granulomatous disease. IMPRESSION: 1. Minimal oropharyngeal and hypopharyngeal mucosal thickening. This could correlate with mild pharyngitis. No retropharyngeal abscess. 2. The palatine and lingual tonsils are mildly enlarged. Please exclude tonsillitis. No peritonsillar abscess.
--- NOTE | 2024-09-06 16:35 | PC.NURSE ---
arrived from ER admissions by w/c
[2024-09-06 16:38] VITALS: BP 149/91; PULSE 81; RESP 17; TEMP 36.9; O2SAT 95; BMI 30.3
[2024-09-06 17:09] LABS: White Blood Count 9.8 K/mm3 (4.8-10.8)
[2024-09-06 17:10] LABS: Basophils # 0.1 K/mm3 (0-0.2); Basophils % 1.1 % (0.1-2.0); Eosinophils # 0.2 K/mm3 (0.0-0.4); Eosinophils % 1.5 % (0.1-12.0); Hematocrit 39.4 % (37.0-47.0); Hemoglobin 13.3 g/dL (12.2-16.2); Lymphocytes # 4.4 K/mm3 (0.7-4.5); Lymphocytes % 44.6 % (10-50); Mean Corpuscular HGB Conc 33.8 g/dL (31.8-35.4); Mean Corpuscular Hemoglobin 29.8 pg (27.0-31.2); Mean Corpuscular Volume 88.1 fl (81-99); Mean Platelet Volume 9.1 fl (7.4-10.4); Monocytes # 0.9 K/mm3 (0.1-1.0); Monocytes % 9.1 % (1.7-9.3); Neutrophils # 4.2 K/mm3 (1.8-7.8); Neutrophils % 43.4 % (37.0-80.0); Platelet Count 429 K/mm3 (142-424); Red Blood Count 4.47 M/mm3 (4.20-5.40); Red Cell Distribution Width 12.5 % (11.5-17.5)
[2024-09-06] MEDS: AMPICILLIN SODIUM/SULBACTAM 3 GM in 0.9 % SODIUM CHLORIDE 100 ML IV ×2 (17:12→22:41)
[2024-09-06] MEDS: 0.9 % SODIUM CHLORIDE 1000ML 1,000 ML 100 ML IV ×2 (17:12→22:42)
[2024-09-06] MEDS: DEXAMETHASONE 4MG/ML 1ML VIAL 4 MG IV ×2 (17:14→22:40)
[2024-09-06 17:43] LABS: Chloride 106 mmol/L (98-107)
[2024-09-06 17:44] LABS: Albumin Level 4.6 g/dl (3.5-5.0); Potassium 3.6 mmoL/L (3.5-5.1); Sodium 138 mmol/L (136-145)
[2024-09-06 17:46] LABS: Alanine Aminotransferase 37 U/L (12-78); Blood Urea Nitrogen 12 mg/dl (7-17); Creatinine Clearance Estimated 151 mL/min (50-200); Estimated Glomerular Filt Rate 91 ml/min (>60); GFR (African American) 110 ML/MIN (>60); Lactic Acid 0.7 mmol/L (0.7-2.1)
[2024-09-06 17:47] LABS: Albumin/Globulin Ratio 1.4 (1.1-1.8); Alkaline Phosphatase 85 U/L (38-126); Anion Gap 11.6 mEq/L (5-15); Aspartate Amino Transferase 33 U/L (14-36); Bilirubin,Total 0.3 mg/dl (0.2-1.3); Calcium 9.4 mg/dl (8.4-10.2); Carbon Dioxide 24 mmol/L (22.0-30.0); Globulin 3.4 g/dL (1.3-3.2); Glucose 93 mg/dl (74-100)
[2024-09-06] MEDS: IOPAMIDOL-370 (76%);100ML BOTTLE 75 ML IV (18:06)
[2024-09-06] MEDS: SODIUM CHLORIDE 0.9% 10ML SYR (RAD ONLY) 10 ML IV (18:06)
[2024-09-06 20:00] VITALS: BP 123/78; PULSE 68; RESP 16; TEMP 36.7; O2SAT 97
[2024-09-07 04:00] VITALS: BP 124/52; PULSE 77; RESP 18; TEMP 36.6; O2SAT 99; BMI 30.4
[2024-09-07] MEDS: 0.9 % SODIUM CHLORIDE 1000ML 1,000 ML 100 ML IV (04:39)
[2024-09-07] MEDS: AMPICILLIN SODIUM/SULBACTAM 3 GM in 0.9 % SODIUM CHLORIDE 100 ML IV (04:40)
[2024-09-07] MEDS: DEXAMETHASONE 4MG/ML 1ML VIAL 4 MG IV (04:40)
--- NOTE | 2024-09-07 06:25 | PC.NURSE ---
Pt. is alert and orientated x 4. Pt is on room air. Pt was admitted yesterday for strep pharyngititis. Pt. getting IV steroids and IV antibiotics overnight. Pt. states she feels a lot better than yesterday. Pt. slept well overnight. Pt. up independently to bathroom and back to bed. VSS Personal items and call spencer in reach.
--- NOTE | 2024-09-07 08:00 | HMH.PHAINT1 ---
Pharmacy Intervention Comments: HOME MEDICATION LIST VERIFIED WITH OUTPATIENT PHARMACY AND PT INTERVIEW
--- NOTE | 2024-09-07 08:30 | EXP.HPDC ---
General Admission date:: 09/06/24 Discharge date: 09/07/24 *Admission Date: 09/06/24 *Chief complaint: Sore throat, neck swelling *History of present illness: 44-year-old female with essentially negative pertinent past history who presented to our office on 09/04/2024 with severe pharyngitis symptoms. Positive rapid strep test and clinical scenario positive for strep throat with significant lymphadenitis. She was treated with a dexamethasone injection, ceftriaxone injection and placed on amoxicillin with return precautions given the severity of her swelling. She came back to the office on 09/06/2024, was not improved, felt like she was having trouble swallowing and had intense pain. Exam as noted below with significant lymphadenitis and she was admitted to hospital for CT scan to make sure were not dealing with a peritonsillar abscess and for IV antibiotics and fluids given failed outpatient therapy. [facility] Disclaimer: The information contained in this section may have been updated after the patient was seen, as this information can be updated by other users. Medical History History of hypothyroidism GERD (gastroesophageal reflux disease) Surgical History H/O tubal ligation History of lumpectomy History of endometrial ablation Family History Mother Cancer cervical Family/Other Cancer breast Social History (Updated 09/06/24 @ 17:31 by Machelle Shepherd RN) Smoking Status: Former smoker tobacco type: cigarettes packs per day: 1 alcohol intake: never substance use type: denies use current occupational status: employed Travel in the last 8 weeks: None household members: spouse housing: house current occupation: teacher caffeine: No Have you lived/traveled outside [place] in past 30 days?: No Contact w/someone who lives/traveled outside US past 30 days?: No Exposure to someone with infectious disease in past 14 days?: No Do you have a fever (greater than 100.4 F or 38 C)?: No Have you tested positive for COVID-19: No Exposed to someone with COVID-19 in past 14 days?: No Do you have a sore throat?: Yes Do you have a cough?: No Do you have any weakness?: No Are you experiencing any nausea/vomitting?: No Do you have any diarrhea?: No Are you experiencing any unusual bleeding?: No Do you have any muscle aches/pain?: No Do you have any abdominal pain?: No Are you experiencing loss of taste or smell?: No Other Medical History Have you received the Flu Vaccine for this season: No Have you received the Pneumonia Vaccine: No Review of Systems Review of Systems Review of systems:: pertinent systems reviewed and negative unless documented below Exam Data for Last 24 hours Vital signs and Labs for Last 24 Hours: Temp Pulse Resp BP Pulse Ox O2 Del Method 97.9 F 77 18 124/52 L 99 Nasal Cannula 09/07/24 04:00 09/07/24 04:00 09/07/24 04:00 09/07/24 04:00 09/07/24 04:00 09/07/24 06:51 Laboratory Results - last 24 hr 09/06/24 16:50: WBC 9.8, RBC 4.47, Hgb 13.3, Hct 39.4, MCV 88.1, MCH 29.8, MCHC 33.8, RDW 12.5, Plt Count 429 H, MPV 9.1, Neut % (Auto) 43.4, Lymph % (Auto) 44.6, [place] % (Auto) 9.1, Eos % (Auto) 1.5, Baso % (Auto) 1.1, Neut # (Auto) 4.2, Lymph # (Auto) 4.4, [place] # (Auto) 0.9, Eos # (Auto) 0.2, Baso # (Auto) 0.1, Sodium 138, Potassium 3.6, Chloride 106, Carbon Dioxide 24, Anion Gap 11.6, BUN 12, Creatinine 0.70, Estimated Creat Clear 151, Estimated GFR 91, Est GFR ( Amer) 110, Glucose 93, Lactate 0.7, Calcium 9.4, Total Bilirubin 0.3, AST 33, ALT 37, Alkaline Phosphatase 85, Total Protein 8.0, Albumin 4.6, Globulin 3.4 H, Albumin/Globulin Ratio 1.4 I & O for Last 24 hours: Intake & Output 09/04/24 09/05/24 09/06/24 09/07/24 11:59 11:59 11:59 11:59 Intake Total 1393 / 1393 Output Total 0 / 0 Balance 1393 / 1393 Weight 205 lb 8 oz Constitutional Constitutional: no acute distress *Routine HEENT Exam Head: Present normocephalic Eye: Present EOMI and PERRL ENT: Present mucous membranes moist Comments: Throat significantly reddened, significant swelling of tonsils. Uvula intact and tonsils were not touching. No stridor. Significant pain with swallowing. Significant pharynx swelling in the posterior aspect but again no evidence of airway obstruction *Routine Neck Exam Neck: Present supple and lymphadenopathy Comments: Lymph nodes up and down the cervical chain, a couple of nodes above 2 cm. 1 node in the right anterior chain was apparently new over the past 24 to 48 hours. Some supraclavicular swelling in the right side No fluctuance *Routine Respiratory Exam Respiratory: Present CTA bilaterally *Routine Cardiovascular Exam Cardiovascular: Present RRR *Routine Abdominal Exam Abdominal: Present soft and normoactive bowel sounds; Absent tenderness *Routine Rectal Exam Rectal:: deferred *Routine Genitalia Exam Genitalia:: deferred *Routine Extremities Exam Extremities: Absent cyanosis, clubbing or edema *Routine Skin Exam Skin: Present warm; Absent rash *Routine Neurological Exam Neurological: Present alert and oriented X3 Meds Home Medications and Allergies Home Medications ?Medication ?Instructions ?Recorded ?Confirmed ?Type cholecalciferol (vitamin D3) 1,250 1,250 mcg PO WEEKLY 11/26/21 09/06/24 History mcg (50,000 unit) capsule cyanocobalamin (vitamin B-12) 2,500 mcg PO DAILY 11/26/21 09/06/24 History 2,500 mcg tablet fexofenadine 180 mg tablet 180 mg PO DAILY 11/26/21 09/06/24 History (Magalis Allergy) pantoprazole 40 mg tablet,delayed 40 mg PO DAILY 12/21/23 09/06/24 History release paroxetine HCl 10 mg tablet 10 mg PO HS 12/21/23 09/06/24 History rosuvastatin 10 mg tablet 10 mg PO HS 12/21/23 09/06/24 History thyroid (pork) 30 mg tablet 30 mg PO DAILY #90 tabs 12/21/23 09/07/24 Rx (Colbert Thyroid) amoxicillin 875 mg-potassium 1 tab PO BID 7 days #14 tabs 09/07/24 Rx clavulanate 125 mg tablet dexamethasone 4 mg tablet 4 mg PO DAILY 3 days #3 tabs 09/07/24 Rx New Prescriptions to Start Prescriptions: amoxicillin-pot clavulanate Besson,Bronson dexamethasone Besson,Bronson Allergies Allergy/AdvReac Type Severity Reaction Status Date / Time No Known Allergies Allergy Verified 12/21/23 14:25 Hospital Course Hospital Course Hospital Course: Patient was admitted, placed on Unasyn, IV dexamethasone and fluids and modified liquid diet. CT scan of neck was done. Revealed lymphadenitis, pharyngitis and tonsillitis but no evidence of abscess. Overnight the patient improved very nicely. CBC normal, lactic acid normal. Throat culture and blood cultures have been done and are pending. Patient was swallowing well this morning and felt almost back to her baseline after IV therapy. Patient will be discharged home. I will give her a couple of days of dexamethasone and change antibiotics to Augmentin for broader coverage as we await throat culture and blood culture results been I will see her in the office in 2 days for follow-up Results Data Completed and Pending Labs on day of discharge: Labs from last 24 hours 09/06/24 16:50 WBC 9.8 RBC 4.47 Hgb 13.3 Hct 39.4 MCV 88.1 MCH 29.8 MCHC 33.8 RDW 12.5 Plt Count 429 H MPV 9.1 Neut % (Auto) 43.4 Lymph % (Auto) 44.6 [place] % (Auto) 9.1 Eos % (Auto) 1.5 Baso % (Auto) 1.1 Neut # (Auto) 4.2 Lymph # (Auto) 4.4 [place] # (Auto) 0.9 Eos # (Auto) 0.2 Baso # (Auto) 0.1 Sodium 138 Potassium 3.6 Chloride 106 Carbon Dioxide 24 Anion Gap 11.6 BUN 12 Creatinine 0.70 Estimated Creat Clear 151 Estimated GFR 91 Est GFR ( Amer) 110 Glucose 93 Lactate 0.7 Calcium 9.4 Total Bilirubin 0.3 AST 33 ALT 37 Alkaline Phosphatase 85 Total Protein 8.0 Albumin 4.6 Globulin 3.4 H Albumin/Globulin Ratio 1.4 DS: Diagnosis Discharge Diagnosis (1) Infective pharyngitis: Status: Acute Code(s): J02.9 - Acute pharyngitis, unspecified (2) Lymphadenitis: Status: Acute Code(s): I88.9 - Nonspecific lymphadenitis, unspecified Discharge Plan Disposition Patient Disposition: Home, Self-Care Follow up Plan Follow up with: Bronson Billingsley MD [Primary Care Provider] - 09/09/24 Prescriptions/Medication Reconciliation: New dexamethasone 4 mg tablet 4 mg PO DAILY 3 Days Qty: 3 0RF amoxicillin-pot clavulanate 875-125 mg tablet 1 tab PO BID 7 Days Qty: 14 0RF Continued fexofenadine [Magalis Allergy] 180 mg tablet 180 mg PO DAILY cholecalciferol (vitamin D3) 1,250 mcg (50,000 unit) capsule 1,250 mcg PO WEEKLY cyanocobalamin (vitamin B-12) 2,500 mcg tablet 2,500 mcg PO DAILY rosuvastatin 10 mg tablet 10 mg PO HS paroxetine HCl 10 mg tablet 10 mg PO HS pantoprazole 40 mg tablet,delayed release (DR/EC) 40 mg PO DAILY Patient Comments: TAKE 1 TABLET BY MOUTH ONCE DAILY Colbert Thyroid 30 mg tablet 30 mg PO DAILY Qty: 90 4RF Problem Reconciliation Problems Reviewed?: Yes Patient Discharge Instructions ACTIVITY: Continue current activity DIET: continue same diet Patient Instructions: Sore Throat Print Language: Pashto Providers Primary Care Provider: Bronson Billingsley Admit Provider: Bronson Billingsley Attending Provider: Bronson Billingsley
--- NOTE | 2024-09-08 10:18 | SW/DCPLANNER ---
Spoke with patient on the phone. Patient stated that she feels alot better. Patient stated that she is aware of her upcoming appointment. 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 Patient stated that she has no concerns or questions at this time. Aidan Bass
== END 2024-09-07 09:40 | disposition home or self-care (01) ==
PROVIDERS: Admitting Provider Internal Medicine Adolescent Medicine; PCP Internal Medicine Adolescent Medicine; Visit Provider Internal Medicine Adolescent Medicine
DX: L04.0 Acute lymphadenitis of face, head and neck (principal); J06.0 Acute laryngopharyngitis; B95.5 Unspecified streptococcus as the cause of diseases classified elsewhere; K21.9 Gastro-esophageal reflux disease without esophagitis; E66.9 Obesity, unspecified; E03.9 Hypothyroidism, unspecified; Z80.3 Family history of malignant neoplasm of breast; Z80.49 Family history of malignant neoplasm of other genital organs; Z79.890 Hormone replacement therapy; Z79.899 Other long term (current) drug therapy; Z87.891 Personal history of nicotine dependence; Z68.30 Body mass index [BMI] 30.0-30.9, adult
CPT/HCPCS: 70491; 80053; 83605; 85025; 87040; 87070; G0378; J0295; J1100; J7030; Q9967

== ENCOUNTER 2025-01-24 13:12 | Outpatient (CLI) | payer BC, SELFPAY ==
--- OUTSIDE RECORDS SUMMARY | 2025-01-24 13:16 | XMS_ITS | Clinical Summary ---
Author Organization [facility] Address [address] [place] [place] [address] Care Team Providers Care Data Specialist Name Role Phone Minerva Akhtar DAMIAN Primary Care Provider [phone] Medications azithromycin (Zithromax) 250 MG tablet TAKE 2 TABLETS BY MOUTH ON DAY 1, AND THEN TAKE 1 TABLET BY MOUTH ONCE A DAY ON DAY 2 THROUGH DAY 5 03/29/2024 Active cyclobenzaprine (Flexeril) 10 MG tablet TAKE 1 TABLET BY MOUTH AT BEDTIME NEEDED FOR 30 DAYS 07/27/2023 Active diclofenac (Voltaren) 75 MG EC tablet Take 1 tablet (75 mg) by mouth 2 (two) times a day if needed. 12/10/2023 Active HYDROcodone-shadia taminophen (Mexia) 5-325 MG tablet TAKE 1 TABLET BY MOUTH EVERY 6 HOURS NEEDED FOR 3 DAYS 04/20/2024 Active metFORMIN XR (Glucophage-XR) 500 MG 24 hr tablet Take 1 tablet (500 mg) by mouth every night. 12/28/2023 Active pantoprazole (Protonix) 40 MG EC tablet Take 1 tablet (40 mg) by mouth 1 (one) time each day. 04/03/2024 Active PARoxetine (Paxil) 10 MG tablet Take 1 tablet (10 mg) by mouth every night. 04/28/2024 Active prednisoLONE acetate (Pred-Forte) 1 % ophthalmic suspension 05/05/2024 Active predniSONE (Deltasone) 20 MG tablet TAKE 2 TABLETS BY MOUTH ONCE DAILY IN THE MORNING WITH FOOD FOR 5 DAYS 03/30/2024 Active promethazine-de xtromethorphan (Phenergan-DM) 6.25-15 MG/5ML syrup TAKE 5 ML BY MOUTH EVERY 6 HOURS NEEDED FOR COUGH FOR 10 DAYS 03/29/2024 Active rosuvastatin (Crestor) 10 MG tablet Take 1 tablet (10 mg) by mouth every night. 04/28/2024 Active triazolam (Halcion) 0.25 MG tablet TAKE BOTH TABLETS BY MOUTH 1 HOUR PRIOR TO DENTAL APPOINTMENT. DO NOT DRIVE WHILE TAKING 06/30/2023 Active Active Problems No known active problems Social History Tobacco Use Types Packs/Day Years Used Date Smoking Tobacco: Never Passive Smoke Exposure: Never Smokeless Tobacco: Never Tobacco Cessation:Counseling Given: Not Answered Comments Unknown Sex and Gender Information Value Date Recorded Sex Assigned at Not on file Legal Sex Female 7:07 PM EDT Gender Identity Not on file Sexual Orientation Not on file Plan of Treatment Health Maintenance Due Date Last Done Comments [facility]-Depression Screening 1980 [facility]-HIV Screening 1980 [facility]-Hepatitis C Screening 1980 [facility]-Infant/Child/Adol SDOH Screenings 1980 [facility]-Varicella Vaccines (1 of 2 - 13+ 2-dose series) 1993 HPV Vaccines (1 - 3-dose series) 1995 [facility]- SDOH Screenings 1998 [facility]-Adult SDOH Screenings 1998 [facility]-Hepatitis B Vaccines (1 of 3 - 19+ 3-dose series) 1999 [facility]-Zoster Vaccines (1 of 2) 1999 [facility]-DTaP,Tdap,and Td Vaccines (1 - Tdap) 02/27/2000 02/26/2000 [facility]-Pap Smear 2001 [facility]-Cervical Cancer Screening 2010 [facility]-HPV/Cotest 2010 [id number] Vaccine (3 - Moderna risk series) 09/20/2020 08/23/2020, 07/24/2020 [facility]-Influenza Vaccine (#1) 2025 [facility]-HIB Vaccines Aged Out No longer e ligible based on patient's age to complete this topic [facility]-Hepatitis A Vaccines Aged Out No longer eligible based on patient's age to complete this topic [facility]-IPV Vaccines Aged Out No longer e ligible based on patient's age to complete this topic [facility]-Pneumococcal Vaccine: Pediatrics (0 to 5 Years) and At-Risk Patients (6 to 49 Years) Aged Out No longer eligible b ased on patient's age to complete this topic [facility]-Rotavirus Vaccines Aged Out No lo nger eligible based on patient's age to complete this topic Insurance [facility] Care Teams Data Specialist Relationship Specialty Start Date End Date Minerva Akhtar, DAMIAN [address] [place] [address] TOVA Zimmerman [id number] PCP - General 05/05/24
--- NOTE | 2025-01-24 13:30 | MM_ITS ---
PROCEDURE INFORMATION: Exam: MG Bilateral Screening 3D Mammography Exam date and time: 01/24/2025 1:32 PM Age: 44 years old Clinical indication: Screening examination. TECHNIQUE: Imaging protocol: Bilateral Screening tomosynthesis and 2D mammography including computer-aided detection (CAD) when performed. COMPARISON: 1. MG MM DIG SCREENING MAMM BI W/CAD 12/28/2023 1:11 PM 2. MG MM DIG SCREENING MAMM BI W/CAD 12/11/2022 9:53 AM FINDINGS: MAMMOGRAPHY: Breast composition: The breasts are heterogeneously dense, which may obscure small masses. Mass: None. Architectural distortion: None. Calcifications: No suspicious calcifications. Asymmetric density: None. Skin thickening: None. Axillary adenopathy: None. IMPRESSION: No mammographic evidence of malignancy. Annual screening is recommended unless otherwise clinically indicated. ASSESSMENT: BI-RADS Category 1: Negative.
== END 2025-01-24 23:59 | disposition home or self-care (01) ==
LOC: RAD 13:13
PROVIDERS: PCP Internal Medicine Adolescent Medicine; Visit Provider Nurse Practitioner Obstetrics & Gynecology
DX: Z12.31 Encounter for screening mammogram for malignant neoplasm of breast (principal); R92.333 Mammographic heterogeneous density, bilateral breasts
CPT/HCPCS: 77063; 77067